=== PATIENT | male | born 1940 | race Caucasian/White ===

== ENCOUNTER 2022-09-17 05:50 | Day surgery (SDC) | payer MEDICARE ==
[2022-09-15 09:55] LABS: BASOPHILS % (AUTO) 0.4 % (0.0-5.0); EOSINOPHILS % (AUTO) 2.5 % (0.0-8.0); HEMATOCRIT 35.9 % (42-54); LYMPHOCYTES % (AUTO) 8.3 % (21.0-51.0); MEAN CORPUSCULAR HGB CONC 32.3 g/dL (32.0-36.0); MEAN CORPUSCULAR VOLUME 92.8 fL (79-99); MONOCYTES % (AUTO) 12.3 % (3.0-13.0); NEUTROPHILS % (AUTO) 76.1 % (40.0-77.0); PLATELET COUNT (AUTO) 253 K/uL (130-400); RED BLOOD CELL COUNT(AUTO) 3.87 MIL/uL (4.50-6.20); WHITE BLOOD COUNT (AUTO) 10.8 K/uL (4.8-10.8)
[2022-09-15 10:05] LABS: ALBUMIN 3.8 g/dL (3.5-5.0); CREATININE 1.8 mg/dL (0.5-1.5); CRP QUANTITATIVE 5.4 mg/L (0.00-9.0); POTASSIUM 5.5 mmol/L (3.5-5.1)
[2022-09-15 10:08] LABS: INR 0.93 (0.85-1.15); PROTHROMBIN TIME 9.7 SEC (9.6-11.6)
[2022-09-15 10:09] LABS: PARTIAL THROMBOPLASTIN TIME 27.1 SEC (26.3-35.5)
[2022-09-16 10:31] VITALS: BP 149/68
[2022-09-17] VITALS (12 sets, daily range): BP systolic 87–126; BP diastolic 33–66
[~2022-09-17] VITALS: Ht 172.7 cm; Wt 67.2 kg
[~2022-09-17 05:50] MED LIST: AEC81 PO; AMLO-258 PO; ATOR40TA69 PO; BUDE10.2 IH; BUPIVACAINE/PF 0.5% 30ML VIAL ONE; CHOL2000 PO; CLOP-31 PO; LISI1TAB51 PO
[2022-09-17] MEDS: CLINDAMYCIN IVPB 900MG/50ML 50 ML IV SCH ×2 (06:00→08:00)
[2022-09-17] MEDS ORDERED: LACTATED RINGERS 1000ML 1,000 ML IV ONE (06:31)
[2022-09-17] MEDS ORDERED: IOHEXOL 180 MG/ML 20 ML VIAL ONE (07:52)
[2022-09-17] MEDS ORDERED: PROPOFOL 10 MG/ML 20ML VIAL IV ONE (07:59)
[2022-09-17] MEDS ORDERED: FENTANYL CITRATE PF 50 MCG/1 ML 2ML VIAL ONE (08:00)
[2022-09-17] MEDS ORDERED: ONDANSETRON 4MG INJ ONE (08:00)
== END 2022-09-17 09:23 | disposition home or self-care (01) ==
LOC: DAH 05:50
PROVIDERS: ATTEND Student in an Organized Health Care Education/Training Program
DX: M16.12 Unilateral primary osteoarthritis, left hip (principal); Z20.822 Contact with and (suspected) exposure to COVID-19; G89.29 Other chronic pain; I10 Essential (primary) hypertension; I25.10 Atherosclerotic heart disease of native coronary artery without angina pectoris; J44.9 Chronic obstructive pulmonary disease, unspecified; E78.5 Hyperlipidemia, unspecified; Z99.81 Dependence on supplemental oxygen; Z95.5 Presence of coronary angioplasty implant and graft; Z98.890 Other specified postprocedural states; Z87.891 Personal history of nicotine dependence; Z88.0 Allergy status to penicillin; Z98.2 Presence of cerebrospinal fluid drainage device; Z79.82 Long term (current) use of aspirin; Z79.899 Other long term (current) drug therapy; Z79.01 Long term (current) use of anticoagulants
CPT/HCPCS: 87426; 82040; 80048; 85025; 85610; 85730; 84134; 86140; 36415; 20610; 77002; 73503; A4663; J7120; J2704; J2405; J1030; J3490 ×3; Q9965; A5120; A4215; A4223; A4222; A4221; J3010